=== PATIENT | male | born 1965 | race Caucasian/White ===

== ENCOUNTER 2016-10-19 13:49 | Emergency (ER) | payer OTHER, SELFPAY | END 2016-10-19 14:22 | disposition home or self-care (01) | LOC: NAV ERS 13:49 | DX: K52.9 Noninfective gastroenteritis and colitis, unspecified (principal); I10 Essential (primary) hypertension; M54.9 Dorsalgia, unspecified; F17.210 Nicotine dependence, cigarettes, uncomplicated | CPT/HCPCS: 99284 ==

== ENCOUNTER 2017-03-25 07:16 | Emergency (ER) | payer SELFPAY ==
[2017-03-25] MEDS ORDERED: Ondansetron ODT 4 MG TAB ONE (07:33)
== END 2017-03-25 07:53 | disposition home or self-care (01) ==
LOC: NAV ERS 07:16
DX: K52.9 Noninfective gastroenteritis and colitis, unspecified (principal); I10 Essential (primary) hypertension; F17.210 Nicotine dependence, cigarettes, uncomplicated
CPT/HCPCS: 99283; Q0162